=== PATIENT | male | born 1960 | race Native Hawaiian/Other Pacific Islander ===

== ENCOUNTER 2017-05-03 08:08 | Inpatient (IN) | payer OTHER ==
[2017-05-03] VITALS (7 sets, daily range): BP systolic 163–215; BP diastolic 94–124; TEMP 97.9–99.2; Ht 180.3 cm; Wt 88.3 kg
[~2017-05-03] VITALS: Ht 180.3 cm; Wt 88.3 kg
[2017-05-03] MEDS ORDERED: OXYCODONE30 MG PO (08:22)
[2017-05-03 09:15] LABS: PLATELET COUNT 179 K/uL (142-355)
[2017-05-03 09:28] LABS: POTASSIUM 4.6 mmol/L (3.6-5.2)
[2017-05-04] VITALS: BP 160/94; TEMP 99.3
[2017-05-04 04:00] VITALS: BP 159/113; TEMP 98.1
[2017-05-04 06:32] LABS: PLATELET COUNT 166 K/uL (142-355)
[2017-05-04 08:00] VITALS: BP 130/91; TEMP 98
[2017-05-04 11:42] VITALS: BP 108/82; TEMP 97.9
[2017-05-04 16:00] VITALS: BP 155/98; TEMP 97.8
[2017-05-04 20:00] VITALS: BP 139/76; TEMP 98.1
[2017-05-05] VITALS: BP 175/91; TEMP 97.7
[2017-05-05 04:00] VITALS: BP 147/94; TEMP 97.5
[2017-05-05 06:20] LABS: POTASSIUM 5.1 mmol/L (3.6-5.2)
[2017-05-05 06:50] LABS: PLATELET COUNT 178 K/uL (142-355)
[2017-05-05 08:00] VITALS: BP 164/71; TEMP 97.8
[2017-05-05 12:00] VITALS: BP 147/95; TEMP 98
[2017-05-05 16:00] VITALS: BP 146/86; TEMP 97.8
[2017-05-05 20:00] VITALS: BP 134/72; TEMP 98.1
[2017-05-06] VITALS (7 sets, daily range): BP systolic 113–156; BP diastolic 72–92; TEMP 98–98.8
[2017-05-06 06:22] LABS: PLATELET COUNT 231 K/uL (142-355)
[2017-05-06 06:36] LABS: POTASSIUM 5.5 mmol/L (3.6-5.2)
[2017-05-07 04:00] VITALS: BP 170/98; TEMP 97.4
[2017-05-07 05:11] LABS: PLATELET COUNT 237 K/uL (142-355)
[2017-05-07 05:44] LABS: POTASSIUM 5.1 mmol/L (3.6-5.2)
[2017-05-07 07:54] VITALS: BP 175/90; TEMP 98.4
[2017-05-07 12:00] VITALS: BP 173/94; TEMP 98.2
[2017-05-07 15:47] VITALS: BP 131/83; TEMP 98.4
[2017-05-07 20:00] VITALS: BP 193/103; TEMP 98.8
[2017-05-08] VITALS: BP 167/102; TEMP 98.6
[2017-05-08 04:00] VITALS: BP 150/107; TEMP 98.6
[2017-05-08 05:35] LABS: PLATELET COUNT 240 K/uL (142-355)
[2017-05-08 05:48] LABS: POTASSIUM 4.4 mmol/L (3.6-5.2)
[2017-05-08 08:09] VITALS: BP 144/89; TEMP 97.5
== END 2017-05-08 10:50 | disposition home or self-care (01) | DRG 603 ==
LOC: ED 08:08 → MED/SURG 12:10
PROVIDERS: ADMIT Specialist
DX: L03.114 Cellulitis of left upper limb (principal); N18.4 Chronic kidney disease, stage 4 (severe); I12.9 Hypertensive chronic kidney disease with stage 1 through stage 4 chronic kidney disease, or unspecified chronic kidney disease; F17.210 Nicotine dependence, cigarettes, uncomplicated
CPT/HCPCS: 36415; 80053; 80202; 83735; 84100; 85027; 85651; 87040; 87077; 87185; 87205; 96367; 96374; 99284; J1450; J2405; J3370